=== PATIENT | male | born 1985 | race Caucasian/White ===

== ENCOUNTER 2018-03-27 23:52 | Emergency (ER) | payer OTHER ==
[~2018-03-27] VITALS: Ht 172.7 cm; Wt 113.4 kg
[~2018-03-27 23:52] MED LIST: OXYACE5T PO; RXOXYACE PO
== END 2018-03-28 00:01 ==
LOC: ER 23:52
DX: Z00.8 Encounter for other general examination (principal); I10 Essential (primary) hypertension; F17.200 Nicotine dependence, unspecified, uncomplicated
CPT/HCPCS: 99283